=== PATIENT | female | born 1995 | race Caucasian/White ===

== ENCOUNTER 2019-04-04 05:06 | Emergency (ER) | payer SELFPAY ==
[~2019-04-04] VITALS: Ht 172.7 cm; Wt 68.0 kg
[2019-04-04 05:06] VITALS: BP_SYST 119
--- NOTE | 2019-04-04 05:06 | NUR ---
Pt BIB [facility] r/t T/C, placed to [facility] bed 1.
--- NOTE | 2019-04-04 05:21 | NUR ---
Dr. Browning bedside for Pt eval
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
--- NOTE | 2019-04-04 05:31 | NUR ---
Pt placed to ER bed 07, to gown, to diagnostic cardiac sonographer. Pt report given to AGUS Parham.
--- NOTE | 2019-04-04 05:35 | NUR ---
Lab at bedside.
[2019-04-04 05:39] LABS: BASOPHILS # (AUTO) 0.1 K/uL (0.0-0.2); BASOPHILS % (AUTO) 1.1 % (0.0-2.0); EOSINOPHILS # (AUTO) 0.1 K/uL (0.0-0.4); EOSINOPHILS % (AUTO) 0.9 % (0.0-4.0); HEMATOCRIT 43.1 % (36-48); HEMOGLOBIN 14.4 g/dL (12.0-16.0); LYMPHOCYTES # (AUTO) 1.6 K/uL (1.0-5.5); LYMPHOCYTES % (AUTO) 27.6 % (20.5-51.5); MEAN CORPUSCULAR HEMOGLOBIN 31 pg (27-31); MEAN CORPUSCULAR HGB CONC 33 % (32-36); MEAN CORPUSCULAR VOLUME 93 fL (79.0-98.0); MONOCYTES # (AUTO) 0.4 K/uL (0.0-1.0); MONOCYTES % (AUTO) 7.5 % (1.7-9.3); NEUTROPHILS # (AUTO) 3.6 K/uL (1.8-7.7); NEUTROPHILS % (AUTO) 62.9 % (40.0-70.0); PLATELET COUNT (AUTO) 259 K/uL (130-430); RED BLOOD CELL COUNT(AUTO) 4.63 MIL/uL (4.2-6.2); WHITE BLOOD COUNT (AUTO) 5.6 K/uL (4.8-10.8)
--- NOTE | 2019-04-04 05:50 | NUR ---
PER OFFICER KAMRYN PT WILL BE RELEASED INTO HOSPITAL CARE AT THIS TIME. PTS SISTER RENETTA ROMAN HAS BEEN CONTACTED AND WILL COME TO [employer]PERVIS[employer] PT. ETA IS 45 MINS FROM [place]. CONTACT NUMBER .
[2019-04-04 05:54] LABS: CALCIUM 9.4 mg/dL (8.4-11.0); CREATININE 0.68 mg/dL (0.55-1.30); POTASSIUM 4.7 mmol/L (3.5-5.1)
--- NOTE | 2019-04-04 05:55 | NUR ---
PT TO CT VIA WHEELCHAIR ACCOMPANIED BY HUMID SYSTEM OPERATOR.
[2019-04-04 06:00] LABS: ALBUMIN 4.2 g/dL (3.4-4.8); TOTAL BILIRUBIN 0.2 mg/dL (0.0-1.0)
--- NOTE | 2019-04-04 06:01 | NUR ---
PT RETURNED FROM CT VIA WHEELCHAIR IN STABLE CONDITION.
[2019-04-04 06:44] VITALS: BP_SYST 119
--- NOTE | 2019-04-04 06:44 | NUR ---
Patient given written and verbal discharge instructions and verbalizes understanding. ER MD discussed with patient the results and treatment provided. Patient in stable condition. ID arm band removed. Rx of ZOFRAN given. Patient educated on pain management and to follow up with PMD. Pain Scale 0/10. Opportunity for questions provided and answered. Medication side effect fact sheet provided.
== END 2019-04-04 06:44 | disposition home or self-care (01) ==
LOC: SED 05:06
DX: F10.129 Alcohol abuse with intoxication, unspecified (principal); V43.52XA Car driver injured in collision with other type car in traffic accident, initial encounter; Y93.89 Activity, other specified; Y92.410 Unspecified street and highway as the place of occurrence of the external cause; Y99.8 Other external cause status; Y90.6 Blood alcohol level of 120-199 mg/100 ml
CPT/HCPCS: 36415; 70450; 71046; 80053; 81002; 83690; 85025; 99284; G0482